=== PATIENT | female | born 1960 | race Caucasian/White ===

== ENCOUNTER 2017-03-07 12:18 | Emergency (ER) | payer BC, OTHER ==
[2017-03-07 13:31] VITALS: BP 143/75
--- NOTE | 2017-03-07 13:51 | UC ---
Complaint Female HPI - History Of Current Complaint Hx Last Menstrual Period: menapause <Rach Hopkins - Last Filed: 03/07/17 13:50> <Albino Rosenthal - Last Filed: 03/07/17 15:09> - History Of Current Complaint Chief Complaint: UCGU Stated Complaint: BURNING URINATION,URGENCY, Time Seen by Provider: 03/07/17 13:38 - Allergies/Home Medications Allergies/Adverse Reactions: Allergies Allergy/AdvReac Type Severity Reaction Status Date / Time Codeine Allergy Severe Anaphylatic Verified 03/07/17 13:31 Shock Lisinopril Allergy Severe DRY COUGH Verified 03/07/17 13:31 Home Medications: Home Medications Esomeprazole Magnesium [Nexium] 1 tab PO DAILY 03/07/17 [History Confirmed 03/07] Phenazopyridine HCl 1 tab PO ONCE 03/07/17 [History Confirmed 03/07/17] PMH/Surg Hx/FS Hx/Imm Hx Endocrine History Of: Reports: Diabetes Denies: Thyroid Disease Cardiovascular History Of: Reports: Cardiac Disorders - [place]-2012, Hypertension, Myocardial Infarction Respiratory History Of: Denies: COPD, Asthma GI/ History Of: Reports: Gall Bladder Disease - cholesystectomy Denies: Ulcer - Surgical History Surgical History: Yes Surgery Procedure, Year, and Place: CARDIAC STENT 2012. LEFT KIDNEY TRANSPLANT. RIGHT KIDNEY REMOVED '. APPENDECTOMY. GALL BLADDER REMOVAL ' . BREAST REDUCTION ' - Family History Known Family History: Positive: Cardiac Disease, Hypertension - Social History Alcohol Use: None Substance Use Type: None Smoking Status (MU): Former Smoker Type: Cigarettes Length of Time of Smoking/Using Tobacco: 44 years, not smoking for 6 of those, trouble quitting Have You Smoked in the Last Year: No When Did the Patient Quit Smoking/Using Tobacco: 01/2016 Household Exposure Type: Cigarettes - Immunization History Most Recent Influenza Vaccination: utd Most Recent Tetanus Shot: not sure Most Recent Pneumonia Vaccination: Never <Rach Hopkins - Last Filed: 03/07/17 13:50> Physical Exam Vital Signs: Initial Vital Signs Temp 97.8 F 03/07/17 13:25 Pulse 56 03/07/17 13:25 Resp 16 03/07/17 13:25 BP 143/75 03/07/17 13:25 Pulse Ox 100 03/07/17 13:25 <Rach Hopkins - Last Filed: 03/07/17 13:50> Vital Signs: Initial Vital Signs Temp 97.8 F 03/07/17 13:25 Pulse 56 03/07/17 13:25 Resp 16 03/07/17 13:25 BP 143/75 03/07/17 13:25 Pulse Ox 100 03/07/17 13:25 <Albino Rosenthal - Last Filed: 03/07/17 15:09>
[2017-03-07] MEDS ORDERED: cefTRIAXone VIAL(*) 1,000 MG in NS 0.9% 50 ML* 50 ML IVPB ONE (15:07)
--- NOTE | 2017-03-07 15:16 | UC ---
Complaint Female HPI - HPI Summary HPI Summary: 56 yo female with dysuria/urgency/frequency Has renal failure CrCL13 has tansplant no fever or chills no vomiting hx frequenct UTIs - History Of Current Complaint Chief Complaint: UCGU Stated Complaint: BURNING URINATION,URGENCY, Time Seen by Provider: 03/07/17 13:38 Hx Last Menstrual Period: menapause Onset/Duration: Gradual Onset, Lasting Days Timing: Constant Severity Initially: Mild Severity Currently: Mild Pain Intensity: 3 Pain Scale Used: 0-10 Numeric Character: Dull, Burning Aggravating Factor(s): Urination Associated Signs And Symptoms: Negative: Fever, Back Pain, Vaginal Bleeding/ Discharge, Vaginal Discharge, Nausea, Vomiting(# Of Episodes =) Related Hx: Similar Episode/Dx as: - UTI - Allergies/Home Medications Allergies/Adverse Reactions: Allergies Allergy/AdvReac Type Severity Reaction Status Date / Time Codeine Allergy Severe Anaphylatic Verified 03/07/17 13:31 Shock Lisinopril Allergy Severe DRY COUGH Verified 03/07/17 13:31 Home Medications: Home Medications Esomeprazole Magnesium [Nexium] 1 tab PO DAILY 03/07/17 [History Confirmed 03/07] Phenazopyridine HCl 1 tab PO ONCE 03/07/17 [History Confirmed 03/07/17] PMH/Surg Hx/FS Hx/Imm Hx Endocrine History Of: Reports: Diabetes Denies: Thyroid Disease Cardiovascular History Of: Reports: Cardiac Disorders - [place]-2012, Hypertension, Myocardial Infarction Respiratory History Of: Denies: COPD, Asthma GI/ History Of: Reports: Gall Bladder Disease - cholesystectomy, Renal Disease Denies: Ulcer - Surgical History Surgical History: Yes Surgery Procedure, Year, and Place: CARDIAC STENT 2012. LEFT KIDNEY TRANSPLANT. RIGHT KIDNEY REMOVED '. APPENDECTOMY. GALL BLADDER REMOVAL ' . BREAST REDUCTION ' - Family History Known Family History: Positive: Cardiac Disease, Hypertension - Social History Alcohol Use: None Substance Use Type: None Smoking Status (MU): Former Smoker Type: Cigarettes Length of Time of Smoking/Using Tobacco: 44 years, not smoking for 6 of those, trouble quitting Have You Smoked in the Last Year: No When Did the Patient Quit Smoking/Using Tobacco: 01/2016 Household Exposure Type: Cigarettes - Immunization History Most Recent Influenza Vaccination: utd Most Recent Tetanus Shot: not sure Most Recent Pneumonia Vaccination: Never Review of Systems Constitutional: Negative Skin: Negative Eyes: Negative ENT: Negative Respiratory: Negative Cardiovascular: Negative Gastrointestinal: Abdominal Pain Genitourinary: Dysuria, Frequency, Urgency Motor: Negative Neurovascular: Negative Musculoskeletal: Negative Neurological: Negative Psychological: Negative All Other Systems Reviewed And Are Negative: Yes Physical Exam Triage Information Reviewed: Yes Appearance: Well-Appearing, No Pain Distress, Well-Nourished Vital Signs: Initial Vital Signs Temp 97.8 F 03/07/17 13:25 Pulse 56 03/07/17 13:25 Resp 16 03/07/17 13:25 BP 143/75 03/07/17 13:25 Pulse Ox 100 03/07/17 13:25 Eyes: Positive: Conjunctiva Clear ENT: Negative: Hearing grossly normal, Nasal congestion, Nasal drainage, Trismus , Muffled/hoarse voice Neck: Positive: Supple, Nontender Respiratory: Positive: Lungs clear, Normal breath sounds, No respiratory distress Cardiovascular: Positive: RRR, No Murmur Abdomen Description: Negative: Nontender - jay LUQt Bowel Sounds: Positive: Present Musculoskeletal: Positive: ROM Intact, No Edema Neurological: Positive: Alert Psychological Exam: Normal Skin Exam: Normal Complaint Female Dx - Differential Dx/Diagnosis Provider Diagnoses: UTI Discharge - Discharge Plan Condition: Good Disposition: HOME Prescriptions: Sulfamethox/Trimethoprim SS* [Bactrim SS 400/80 TAB*] 1 tab PO DAILY #7 tab Patient Education Materials: Urinary Tract Infection in Women (ED) Referrals: Dennys Bansal MD [Primary Care Provider] - 2 Days (recheck in 1-2 days) Additional Instructions: to ER for fever or vomiting
[2017-03-07] MEDS ORDERED: cefTRIAXone VIAL(*) 1,000 MG VIAL ONE (15:27)
--- NOTE | 2017-03-10 21:00 | UC ---
Progress - Progress Note Progress Note: Pt called and verified name and . Pt advised she was given ceftriaxone 1gm on WedMarch 07. Pt also advised urine culture is negative and to DC Bactrim. Pt states she will follow up with her textile artist, Dr. Pruitt at [facility]. States she still has some discomfort but it is better. No fever. (Pt is a kidney transplant pt.)
== END 2017-03-07 16:15 | disposition home or self-care (01) ==
LOC: UCEAST 12:18
DX: N39.0 Urinary tract infection, site not specified (principal); E11.9 Type 2 diabetes mellitus without complications; I25.2 Old myocardial infarction; I10 Essential (primary) hypertension; Z87.891 Personal history of nicotine dependence; Z94.0 Kidney transplant status; Z78.0 Asymptomatic menopausal state; Z88.5 Allergy status to narcotic agent; Z95.5 Presence of coronary angioplasty implant and graft; Z90.5 Acquired absence of kidney
CPT/HCPCS: 81003; 87086; 96365; 99212; G0463; J0696

== ENCOUNTER 2017-07-31 11:54 | Emergency (ER) | payer BC ==
[2017-07-31 12:46] VITALS: BP 150/65
--- NOTE | 2017-07-31 13:07 | UC ---
Complaint Female HPI - HPI Summary HPI Summary: increased urinary frequency, burning with urination. - History Of Current Complaint Chief Complaint: UCGU Stated Complaint: URINARY Time Seen by Provider: 07/31/17 13:00 Hx Obtained From: Patient Hx Last Menstrual Period: menapause ?: No Onset/Duration: Sudden Onset, Lasting Days Timing: Constant Severity Initially: Mild Severity Currently: Moderate Character: Burning Aggravating Factor(s): Urination - Allergies/Home Medications Allergies/Adverse Reactions: Allergies Allergy/AdvReac Type Severity Reaction Status Date / Time Codeine Allergy Severe Anaphylatic Verified 07/31/17 12:41 Shock Lisinopril Allergy Severe DRY COUGH Verified 07/31/17 12:41 PMH/Surg Hx/FS Hx/Imm Hx Previously Healthy: Yes - Surgical History Surgical History: Yes Surgery Procedure, Year, and Place: CARDIAC STENT 2012. LEFT KIDNEY TRANSPLANT. RIGHT KIDNEY REMOVED '. APPENDECTOMY. GALL BLADDER REMOVAL . BREAST REDUCTION - Family History Known Family History: Positive: Cardiac Disease, Hypertension - Social History Alcohol Use: None Substance Use Type: None Smoking Status (MU): Heavy Every Day Tobacco Smoker Type: Cigarettes Amount Used/How Often: 1 PPD Length of Time of Smoking/Using Tobacco: Since Age 11 Have You Smoked in the Last Year: No When Did the Patient Quit Smoking/Using Tobacco: 01/2016 Household Exposure Type: Cigarettes - Immunization History Most Recent Influenza Vaccination: ~07/01/17 Most Recent Tetanus Shot: not sure Most Recent Pneumonia Vaccination: Never Review of Systems Constitutional: Negative Skin: Negative Eyes: Negative ENT: Negative Respiratory: Negative Cardiovascular: Negative Gastrointestinal: Negative Genitourinary: Dysuria, Frequency, Urgency Motor: Negative Neurovascular: Negative Musculoskeletal: Negative Neurological: Negative Psychological: Negative Is Patient Immunocompromised?: No All Other Systems Reviewed And Are Negative: Yes Physical Exam Triage Information Reviewed: Yes Appearance: Well-Appearing, Well-Nourished, Pain Distress Vital Signs: Initial Vital Signs Temp 98.2 F 07/31/17 12:38 Pulse 66 07/31/17 12:38 Resp 16 07/31/17 12:38 BP 150/65 07/31/17 12:38 Pulse Ox 100 07/31/17 12:38 Vital Signs Reviewed: Yes Eye Exam: Normal ENT Exam: Normal Dental Exam: Normal Neck exam: Normal Respiratory Exam: Normal Cardiovascular Exam: Normal Abdominal Exam: Normal Abdomen Description: Positive: CVA Tenderness (R) - neg, CVA Tenderness (L) - neg Bowel Sounds: Positive: Present Musculoskeletal Exam: Normal Musculoskeletal: Positive: Strength Intact, ROM Intact, No Edema Neurological Exam: Normal Neurological: Positive: Alert, Muscle Tone Normal Psychological Exam: Normal Skin Exam: Normal Complaint Female Dx - Course Course Of Treatment: hx obtained, exam performed ,meds reviewed, treated for UTI - Differential Dx/Diagnosis Provider Diagnoses: UTI Discharge - Discharge Plan Condition: Stable Disposition: HOME Prescriptions: Cephalexin CAP* [Keflex CAP*] 500 mg PO BID #14 cap Patient Education Materials: Urinary Tract Infection in Women (ED) Additional Instructions: 1. take the medication as prescribed. 2. Increase your fluid intake and follow up as needed.
== END 2017-07-31 13:10 | disposition home or self-care (01) ==
LOC: UCCORT 11:54
DX: N39.0 Urinary tract infection, site not specified (principal); Z88.5 Allergy status to narcotic agent; Z88.8 Allergy status to other drugs, medicaments and biological substances
CPT/HCPCS: 81003; 87077; 87086; 87186; 99212; G0463

== ENCOUNTER 2017-12-02 10:04 | Emergency (ER) | payer BC ==
[2017-12-02 11:06] VITALS: BP 146/69
--- NOTE | 2017-12-02 11:19 | UC ---
Complaint Female HPI - HPI Summary HPI Summary: 57 y/o female presents to the urgent care c/o bladder spasm, urinary frequency and burning for the past week. Pt has Hx of kidney transplant w/ recurrent UTI' s. Her symptoms start w/ bladder spasm. She waits for a while and if she develops burning, Then she knows she has a UTI. She took 1 tab of Azo about 3 days ago. Pt states mild Pelvic pressure. Pt denies fever, lower back pain, flank, abdominal pain, N/V/D, chest pain, SOB. - History Of Current Complaint Chief Complaint: UCGU Stated Complaint: URINARY COMPLAINT Time Seen by Provider: 12/02/17 11:11 Hx Obtained From: Patient Hx Last Menstrual Period: menapause Onset/Duration: Gradual Onset, Lasting Weeks, Still Present, Worse Since - yesterday Timing: Intermittent Severity Initially: Mild Severity Currently: Moderate Pain Intensity: 6 Pain Scale Used: 0-10 Numeric Character: Burning Aggravating Factor(s): Urination Alleviating Factor(s): Nothing Associated Signs And Symptoms: Positive: Negative. Negative: Fever, Back Pain, Vaginal Bleeding/Discharge, Vaginal Discharge, Nausea, Vomiting(# Of Episodes =) , Genital Swelling - Risk Factors Ectopic Risk Factor: Negative Ovarian Torsion Risk Factor: Negative - Allergies/Home Medications Allergies/Adverse Reactions: Allergies Allergy/AdvReac Type Severity Reaction Status Date / Time codeine Allergy Anaphylatic Verified 12/02/17 10:59 Shock lisinopril Allergy dry cough Verified 12/02/17 10:59 PMH/Surg Hx/FS Hx/Imm Hx Previously Healthy: Yes Endocrine History: Diabetes Other Endocrine History: Anemia, Kidney transplant Cardiovascular History: Hypertension - Surgical History Surgical History: Yes Surgery Procedure, Year, and Place: CARDIAC STENT 2012. LEFT KIDNEY TRANSPLANT. RIGHT KIDNEY REMOVED '. APPENDECTOMY. GALL BLADDER REMOVAL ' . BREAST REDUCTION '. LEEP - Family History Known Family History: Positive: Cardiac Disease, Hypertension, Diabetes - Social History Occupation: Disabled Lives: With Family Alcohol Use: None Substance Use Type: None Smoking Status (MU): Heavy Every Day Tobacco Smoker Type: Cigarettes Amount Used/How Often: 1 PPD Length of Time of Smoking/Using Tobacco: Since Age 11 Have You Smoked in the Last Year: No When Did the Patient Quit Smoking/Using Tobacco: 2014 Household Exposure Type: Cigarettes - Immunization History Most Recent Influenza Vaccination: ~07/01/17 Most Recent Tetanus Shot: not sure Most Recent Pneumonia Vaccination: Never Review of Systems Constitutional: Negative Skin: Negative Eyes: Negative ENT: Negative, Dental Pain Cardiovascular: Negative Gastrointestinal: Negative Genitourinary: Dysuria, Frequency, Urgency Motor: Negative Neurovascular: Negative Musculoskeletal: Negative Neurological: Negative Psychological: Negative Is Patient Immunocompromised?: No All Other Systems Reviewed And Are Negative: Yes Physical Exam Triage Information Reviewed: Yes Vital Signs: Initial Vital Signs Temp 97.6 F 12/02/17 11:00 Pulse 60 12/02/17 11:00 Resp 18 12/02/17 11:00 BP 146/69 12/02/17 11:00 Pulse Ox 100 12/02/17 11:00 - Additional Comments VITAL SIGNS: Reviewed. GENERAL: Patient is a well developed and nourished female who is sitting comfortable in the examining table. Patient is not in any acute respiratory distress. HEAD AND FACE: No signs of trauma. No ecchymosis, hematomas or skull depressions. No sinus tenderness. EYES: PERRLA, EOMI x 2, No injected conjunctiva, clear watery eyes, no nystagmus. No photophobia. EARS: Hearing grossly intact. Ear canals and tympanic membranes are within normal limits. MOUTH: pharynx with no erythema, no exudates,no palatal petechiae. no B/L tonsillar enlargement Uvula in midline. NECK: Supple, trachea is midline, no lymphadenopathy, no JVD, no carotid bruit, no c-spine tenderness, neck with full ROM. CHEST: Symmetric, no tenderness at palpation LUNGS: Clear to auscultation bilaterally. No wheezing or crackles. CVS: Regular rate and rhythm, S1 and S2 present, no murmurs or gallops appreciated. ABDOMEN: Soft, non-tender. No signs of distention. No rebound no guarding, and no masses palpated. Bowel sounds are normal. BACK:no scoliosis or lesions, non tender to palpation, No B/L CVA tenderness EXTREMITIES: FROM in all major joints, no edema, no cyanosis or clubbing. NEURO: Alert and oriented x 3. No acute neurological deficits. Speech is normal and follows commands. SKIN: Dry and warm Complaint Female Dx - Course Course Of Treatment: 57 y/o female presents to the urgent care c/o bladder spasm , urinary frequency and burning for the past week. Pt has Hx of kidney transplant w/ recurrent UTI's. Her symptoms start w/ bladder spasm. She waits for a while and if she develops burning, Then she knows she has a UTI. She took 1 tab of Azo about 3 days ago. Pt states mild Pelvic pressure. Pt denies fever, lower back pain, flank, abdominal pain, N/V/D, chest pain, SOB. Hx obtained. PE : WNL. UA ordered. UA results: Blood 3+, Leukoesterase 3, Protein 3+. Dr Padgett consulted on Pt's symptoms and he recommended Keflex PO. Pt Rx Keflex 500mg PO x 7 days. Pyridium 100mg PO TID x 2 days. Advised to increase fluid intake. Urine sent for culture if any abnormality Pt will be notified for further treatment. Pt advised If symptoms do not improve to return to the urgent care or f/u with PCP. Pt's BP is elevated today advised to decrease salt in diet, monitor BP and f/u with PCP for further management. Pt understood and agreed. Left the clinic ambulating. - Differential Dx/Diagnosis Differential Diagnosis/HQI/PQRI: Cervicitis, Pelvic Inflammatory Disease, Renal Colic, Ureteral Stone, Urinary Tract Infection Provider Diagnoses: 1- UTI. 2-Dysuria. 3- Uncontrolled HTN Discharge - Discharge Plan Condition: Stable Disposition: HOME Prescriptions: cephALEXin [Keflex] 500 mg PO BID #14 capsule Phenazopyridine TAB* [Pyridium 100 mg TAB*] 100 mg PO TID #6 tab Patient Education Materials: Urinary Tract Infection in Women (ED) Referrals: Dennys Bansal MD [Primary Care Provider] - 3 Days Additional Instructions: 1- Please take Keflex 500mg PO x 7 days. Pyridium 100 mg PO TID x 2 days to alleviate urinary symptoms. Increase increase fluid intake. drink cranberry juice. 2-Urine sent for culture if any abnormality, you will be notified for further treatment. 3-If symptoms do not improve please return to the urgent care or f/u with her PCP. 4-Your BP is elevated today. please decrease salt in your diet, monitor BP and if it continues to be elevated please f/u with your PCP for further management
== END 2017-12-02 11:40 | disposition home or self-care (01) ==
LOC: UCCORT 10:04
DX: N39.0 Urinary tract infection, site not specified (principal); I10 Essential (primary) hypertension; E11.8 Type 2 diabetes mellitus with unspecified complications
CPT/HCPCS: 81003; 87077; 87086; 87186; 99212; G0463

== ENCOUNTER 2018-06-20 02:49 | Inpatient (IN) | payer BC ==
--- NOTE | 2018-06-20 03:12 | ED ---
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 The pain woke her from sleep and radiates bilaterally to her sides. At bedside, the pain is still present but milder, and is rated 2 out of 10. Pt initially thought it was her GERD, so she took Tums but that did not relieve the pain, and the pain worsened at home. Associated sx: diaphoresis, vomiting. Denies dyspnea. She states having a stress test in December 2017 that was nml. Pt takes a low dose aspirin daily. PMHx: GERD, renal failure and is on transplant list, [place] with one stent in 2012. - History of Current Complaint Chief Complaint: EDChestPainROMI Time Seen by Provider: 06/20/18 02:52 Hx Obtained From: Patient Hx Last Menstrual Period: menapause Onset/Duration: Started Hours Ago, Still Present Timing: Constant Initial Severity: Moderate Current Severity: Mild Pain Intensity: 2 Pain Scale Used: 0-10 Numeric Chest Pain Location: Mid Sternal Chest Pain Radiates: Yes Chest Pain Radiates To:: Other - bilateral sides Associated Signs and Symptoms: Positive: Diaphoresis, Vomiting, Other: - neg: dyspnea - Additional Pertinent History Primary Care Physician: [id number] - Allergy/Home Medications Allergies/Adverse Reactions: Allergies Allergy/AdvReac Type Severity Reaction Status Date / Time codeine Allergy Anaphylatic Verified 12/02/17 10:59 Shock lisinopril Allergy dry cough Verified 12/02/17 10:59 PMH/Surg Hx/FS Hx/Imm Hx Previously Healthy: No Endocrine/Hematology History: Reports: Hx Diabetes Denies: Hx Thyroid Disease Cardiovascular History: Reports: Hx Angina, Hx Coronary Artery Disease, Hx Hypercholesterolemia, Hx Hypertension, Hx Myocardial Infarction Respiratory History: Denies: Hx Asthma, Hx Chronic Obstructive Pulmonary Disease (COPD) GI History: Reports: Hx Gall Bladder Disease - cholesystectomy, Hx Gastroesophageal Reflux Disease - barretts esoph. Denies: Hx Ulcer History: Reports: Hx Chronic Renal Failure, Hx Renal Disease, Other Problems/Disorders - kidney transplant - Surgical History Surgery Procedure, Year, and Place: CARDIAC STENT 2012. LEFT KIDNEY TRANSPLANT. RIGHT KIDNEY REMOVED . APPENDECTOMY. GALL BLADDER REMOVAL . BREAST REDUCTION . LEEP Infectious Disease History: No Infectious Disease History: Reports: Hx of Known/Suspected MRSA Denies: Hx Clostridium Difficile, Hx Hepatitis, Hx Human Immunodeficiency Virus (HIV), Hx Shingles, Hx Tuberculosis, Hx Known/Suspected VRE, Hx Known/ Suspected VRSA, History Other Infectious Disease, Traveled Outside the [place] in Last 30 Days - Family History Known Family History: Positive: Cardiac Disease, Hypertension, Diabetes - Social History Occupation: Retired Lives: Alone Alcohol Use: None Substance Use Type: Reports: None Smoking Status (MU): Former Smoker Type: Cigarettes Amount Used/How Often: 1 PPD Length of Time of Smoking/Using Tobacco: Since Age 11 Have You Smoked in the Last Year: No Review of Systems Positive: Skin Diaphoresis Positive: Chest Pain Negative: Other - neg: dyspnea Positive: Vomiting All Other Systems Reviewed And Are Negative: Yes Physical Exam - Summary Physical Exam Summary: VITAL SIGNS: Reviewed. GENERAL: Patient is a well-developed and nourished FEMALE who is lying comfortable in the stretcher. Patient is not in any acute respiratory distress. HEAD AND FACE: No signs of trauma. No ecchymosis, hematomas or skull depressions. No sinus tenderness. EYES: PERRLA, EOMI x 2, No injected conjunctiva, no nystagmus. EARS: Hearing grossly intact. Ear canals and tympanic membranes are within normal limits. MOUTH: Oropharynx within normal limits. NECK: Supple, trachea is midline, no adenopathy, no JVD, no carotid bruit, no c- spine tenderness, neck with full ROM. CHEST: Symmetric, no tenderness at palpation LUNGS: Clear to auscultation bilaterally. Mild expiratory wheezes. CVS: Regular rate and rhythm, S1 and S2 present, no murmurs or gallops appreciated. ABDOMEN: Soft, non-tender. No signs of distention. No rebound no guarding, and no masses palpated. Bowel sounds are normal. EXTREMITIES: FROM in all major joints, no edema, no cyanosis or clubbing. NEURO: Alert and oriented x 3. No acute neurological deficits. Speech is normal and follows commands. SKIN: Dry and warm Triage Information Reviewed: Yes Vital Signs On Initial Exam: Initial Vitals Pulse Resp BP Pulse Ox 81 18 147/93 97 06/20/18 02:53 06/20/18 02:53 06/20/18 02:53 06/20/18 02:53 Vital Signs Reviewed: Yes Diagnostics - Vital Signs Vital Signs Temp Pulse Resp BP Pulse Ox 06/20/18 03:02 97.5 F 77 18 147/93 96 06/20/18 03:00 79 24 96 06/20/18 02:53 81 18 147/93 97 - Laboratory Result Diagrams: 06/20/18 05:00 06/20/18 05:00 Lab Statement: Any lab studies that have been ordered have been reviewed, and results considered in the medical decision making process. - Radiology CXR Xray Interpretation: No Acute Changes - No acute process. Radiology Interpretation Completed By: ED Physician - Pending official report. - EKG 02:59 Cardiac Rate: NL - 78bpm EKG Rhythm: Sinus Rhythm EKG Interpretation: LVH with strain, ST elevation only in lead III, minimally 1mm 0312 Cardiac Rate: NL - 73 bpm EKG Rhythm: Sinus Rhythm EKG Interpretation: LVH with strain, ST elevation only in lead III, minimally 1mm EKG Comparison: No Significant Change - from EKG on this date at 02:59 03:12 Cardiac Rate: NL - 73 bpm EKG Rhythm: Sinus Rhythm EKG Interpretation: LVH with strain, ST elevation only in lead III, minimally 1mm EKG Comparison: No Significant Change - from EKG on this date at 02:59 05:34 Cardiac Rate: NL EKG Rhythm: Sinus Rhythm EKG Interpretation: LVH with strain, ST elevation only in lead III, minimally 1mm EKG Comparison: No Significant Change - from two prev EKGs on this date Re-Evaluation - Re-Evaluation 1 Re-Evaluation Time: 03:58 Change: Unchanged Comment: Discussing lab and img results with pt. Chest Pain Course/Dx - Course Course Of Treatment: A 57 y/o F presents with mid-sternal CP radiating bilat onset approx 0130 this date. The pain woke her. Associated sx: diaphoresis, vomiting. Denies dyspnea. She states having a stress test in December 2017 that was nml. Pt takes a low dose aspirin daily. PMHx: GERD, renal failure and is on transplant list, [place] with one stent in 2012. - Diagnoses Provider Diagnoses: Unstable angina - Provider Notifications Discussed Care Of Patient With: Kapil Palacios - cardio Time Discussed With Above Provider: 04:03 Instructed by Provider To: Other - Recommends CK, CK-MB, repeat EKG, heparin drip Discharge - Sign-Out/Discharge Documenting (check all that apply): Patient Departure - ADM - Discharge Plan Condition: Stable Disposition: ADMITTED TO [facility] Referrals: Dennys Bansal MD [Primary Care Provider] - - Attestation Statements Document Initiated by Scribe: Yes Documenting Scribe: Binu Peralta Provider For Whom Scribe is Documenting (Include Credential): Dr. Binta Rodas MD Scribe Attestation: I, Binu Peralta, scribed for Dr. Binta Rodas MD on 06/20/18 at 0609. Consult Consult: [id number]: Consult with Dr. Ordoñez, hospitalist, will admit pt.
[2018-06-20] MEDS ORDERED: Aspirin 81 mg CHEW TAB* 81 MG TAB.CHEW PO ONE (03:13)
[2018-06-20] MEDS ORDERED: Pantoprazole IV* 40 MG IV ONE (03:13)
[2018-06-20] MEDS ORDERED: Metoclopramide IV* 5 MG/ML 2 ML VIAL IV SLOW PU ONE (03:21)
[2018-06-20 03:32] LABS: ABS Basophils 0.1 10^3/ul (0-0.2); ABS Eosinophils 0.1 10^3/ul (0-0.6); ABS Lymphocytes 1.3 10^3/ul (1.0-4.8); ABS Monocytes 0.6 10^3/ul (0-0.8); ABS Neutrophils 3.7 10^3/ul (1.5-7.7); ABS Nucleated RBC 0 10^3/ul; Eosinophil % 2.5 % (0-6); Hematocrit 34 % (35-47); Hemoglobin 11.1 g/dl (12.0-16.0); Mean Corpuscular HGB Conc 33 g/dl (31-36); Mean Corpuscular Hemoglobin 27 pg (27-31); Mean Corpuscular Volume 84 fL (80-97); Mean Platelet Volume 8.1 um3 (7.4-10.4); Nucleated Red Blood Cells % 0; Platelet Count 181 10^3/ul (150-450); Red Blood Count 4.09 10^6/ul (4.00-5.40); Red Cell Distribution Width 15 % (10.5-15); White Blood Count 5.9 10^3/ul (3.5-10.8)
[2018-06-20 03:47] LABS: EGFR Non-African American 12.8 (>60)
[2018-06-20] MEDS ORDERED: Morphine INJ* 2 MG/ML 1 ML SYRINGE (TWO MG - NEW SYRINGE VERSION) IV ONE (03:57)
[2018-06-20] MEDS ORDERED: Ondansetron INJ* 2 MG/ML VIAL IV ONE (03:58)
[2018-06-20 03:59] LABS: INR 0.84 (0.77-1.02)
[2018-06-20] MEDS ORDERED: Heparin for STEMI(*) 5,000 UNITS/ML 1 ML VIAL IV ONE (04:13)
[2018-06-20] MEDS ORDERED: Heparin VIAL(*) 5000 UNITS/ML VIAL (FIVE THOUSAND) IV PRN (04:30)
[2018-06-20] MEDS ORDERED: Heparin DRIP 25,000 UNITS(*) 25,000 UNITS/500 ML BAG IV SCH (04:30)
[2018-06-20 05:19] LABS: ABS Basophils 0 10^3/ul (0-0.2); ABS Eosinophils 0.2 10^3/ul (0-0.6); ABS Lymphocytes 1.3 10^3/ul (1.0-4.8); ABS Monocytes 0.6 10^3/ul (0-0.8); ABS Neutrophils 3.4 10^3/ul (1.5-7.7); ABS Nucleated RBC 0 10^3/ul; Eosinophil % 3.2 % (0-6); Hematocrit 33 % (35-47); Hemoglobin 11.1 g/dl (12.0-16.0); Lymphocyte % 23.2 % (25-47); Mean Corpuscular HGB Conc 34 g/dl (31-36); Mean Corpuscular Hemoglobin 28 pg (27-31); Mean Corpuscular Volume 83 fL (80-97); Mean Platelet Volume 8.2 um3 (7.4-10.4); Nucleated Red Blood Cells % 0; Platelet Count 181 10^3/ul (150-450); Red Blood Count 3.95 10^6/ul (4.00-5.40); Red Cell Distribution Width 15 % (10.5-15); White Blood Count 5.4 10^3/ul (3.5-10.8)
[2018-06-20 05:34] LABS: EGFR Non-African American 13.5 (>60)
--- NOTE | 2018-06-20 05:40 | HP ---
H&P (Free Text) History and Physical: PCP: Artur Bansal MD Date/Time: 06/20/2018 0630 CC: chest pain HPI: Mrs Sweeney is a 57YO female HX CAD/ND/RCA stent, DM2, ESRD s/p renal transplant 10 years ago which is currently failing awaiting re-transplant, HTN, HLD, GERD who has been having what she felt like was her esophageal spasms starting up again 3 weeks ago. However, tonight around 0130 she awoke with squeezing chest discomfort associated with SOB, N/V, & sweating which was unlike her spasms. She tried her typical OTC treatments which did not help and called EMS ~0200. They gave SL nitro x2 decreasing her pain from an 8 to a 4. Initial troponin was 0.15 increased to 1.0 at first recheck. ECG was significant for inferior ischemia. Management in [facility] ED completely alleviated her pain. Brionna Flood MD was consulted and evaluated her in the ED. He is planning cardiac cath later today once she can be optimized from a medical and in particular a renal standpoint with IVFs, mucomyst, & nephrology consult. PMedHx CAD/ND/RCA stent HTN HLD DM2 ESRD s/p transplant 10 years ago awaiting re-transplant GERD Ambulatory Orders Aspirin 81 mg CHEW TAB* 81 mg PO DAILY 06/07/16 Candesartan Cilexetil [Atacand] 8 mg PO DAILY 06/07/16 Cholecalciferol TAB* [Vitamin D TAB*] 50,000 unit PO MONTHLY 06/07/16 Ferrous Sulfate TAB* 325 mg PO DAILY 06/07/16 Furosemide TAB* [Lasix TAB*] 20 mg PO DAILY 06/07/16 Methylcobalamin [[id number]-[id number]] 1 mg PO DAILY 06/07/16 Metoprolol Tartrate TAB* [Lopressor TAB*] 100 mg PO BID 06/07/16 Mycophenolate (NF) [Myfortic (NF)] 360 mg PO BID 06/07/16 Sitagliptin (NF) [Januvia (NF)] 50 mg PO DAILY 06/07/16 Sodium Bicarbonate (ANTACID)* 1,300 mg PO BID 06/07/16 Tacrolimus CAP(*) [Prograf CAP(*)] 1.5 mg PO BID 06/07/16 amLODIPine TAB* [Norvasc 5 mg TAB*] 10 mg PO DAILY 06/07/16 glipiZIDE TAB* [Glucotrol TAB*] 5 mg PO DAILY 06/07/16 predniSONE TAB* [Deltasone TAB*] 5 mg PO DAILY 06/07/16 Atorvastatin* [Lipitor 80 MG*] 80 mg PO DAILY #90 tab 06/08/16 Esomeprazole Magnesium [Nexium] 40 mg PO DAILY 03/07/17 Allergies codeine Allergy (Verified 12/02/17 10:59) Anaphylatic Shock lisinopril Allergy (Verified 12/02/17 10:59) dry cough PSurgHx R nephrectomy for uncertain reason at a 2YO cholecystectomy renal transplant hysterectomy 01/2018 w/ appendectomy SocHx: quit smoking 3 years ago with >40 PYHX, no alcohol or recreational drugs ; lives with her ; full code status FamHx: Mother is alive & healthy at 78. Father passed at 65 2nd CAD. 7 siblings whose combined histories are positive only for DM. ROS: as above, otherwise reviewed and all were negative vitals: Vital Signs Temp 36.4 C 06/20/18 03:02 Pulse 69 06/20/18 07:00 Resp 23 06/20/18 07:00 BP 140/82 06/20/18 06:53 Pulse Ox 99 06/20/18 07:00 Intake & Output 06/19/18 06/19/18 06/20/18 11:59 23:59 11:59 Weight 74.843 kg Constitutional: NAD, normally developed, overweight white female HEENM: atraumatic; sclera/conjunctiva: anicteric/clear; hearing: clinically intact; oropharynx: clear, mucosa intact Neck: soft tissue: non-tender; thyroid: normal Pulmonary: clear to auscultation bilaterally, good aeration, no accessory muscle use CV: RR/RR, normal S1S2, no carotid bruit, no jugular venous distention, 2+ B DP/ PT, no edema Abdominal: soft, non-distended, non-tender, no rebound/guarding/rigidity, normoactive bowel sounds, no hepatosplenomegaly or masses, no costovertebral angle tenderness Musculoskeletal: general: grossly intact, non-tender Integumental: normal appearance and texture of exposed skin Psychiatric orientation: AA&O to PPS affect: calm mood: cooperative eye contact: good content: reliable responses: timely insight: good Testing: Lab Results 06/20/18 06/20/18 06/20/18 Range/Units 03:23 03:23 03:23 WBC 5.9 (3.5-10.8) 10^3/ul RBC 4.09 (4.00-5.40) 10^6/ul Hgb 11.1 L (12.0-16.0) g/dl Hct 34 L (35-47) % MCV 84 (80-97) fL MCH 27 (27-31) pg MCHC 33 (31-36) g/dl RDW 15 (10.5-15) % Plt Count 181 (150-450) 10^3/ul MPV 8.1 (7.4-10.4) um3 Neut % (Auto) 64.0 (38-83) % Lymph % (Auto) 22.0 L (25-47) % [place] % (Auto) 10.6 H (0-7) % Eos % (Auto) 2.5 (0-6) % Baso % (Auto) 0.9 (0-2) % Absolute Neuts (auto) 3.7 (1.5-7.7) 10^3/ul Absolute Lymphs (auto) 1.3 (1.0-4.8) 10^3/ul Absolute Monos (auto) 0.6 (0-0.8) 10^3/ul Absolute Eos (auto) 0.1 (0-0.6) 10^3/ul Absolute Basos (auto) 0.1 (0-0.2) 10^3/ul Absolute Nucleated RBC 0 10^3/ul Nucleated RBC % 0 INR (Anticoag Therapy) 0.84 (0.77-1.02) APTT 25.9 L (26.0-36.3) seconds Sodium 137 (135-145) mmol/L Potassium 4.6 (3.5-5.0) mmol/L Chloride 106 (101-111) mmol/L Carbon Dioxide 22 (22-32) mmol/L Anion Gap 9 (2-11) mmol/L BUN 50 H (6-24) mg/dL Creatinine 3.64 H (0.51-0.95) mg/dL Est GFR ( Amer) 15.5 (>60) Est GFR (Non-Af Amer) 12.8 (>60) BUN/Creatinine Ratio 13.7 (8-20) Glucose 242 H (70-100) mg/dL Lactic Acid (0.5-2.0) mmol/L Calcium 10.1 (8.6-10.3) mg/dL Total Bilirubin 0.30 (0.2-1.0) mg/dL AST 8 L (13-39) U/L ALT 10 (7-52) U/L Alkaline Phosphatase 87 (34-104) U/L Total Creatine Kinase 60 (10-223) U/L CK-MB (CK-2) 2.9 (0.6-6.3) ng/mL Troponin I 0.15 H* (<0.04) ng/mL B-Natriuretic Peptide ( - 100) pg/mL Total Protein 6.2 L (6.4-8.9) g/dL Albumin 3.7 (3.2-5.2) g/dL Globulin 2.5 (2-4) g/dL Albumin/Globulin Ratio 1.5 (1-3) 06/20/18 06/20/18 06/20/18 Range/Units 03:23 03:23 05:00 WBC (3.5-10.8) 10^3/ul RBC (4.00-5.40) 10^6/ul Hgb (12.0-16.0) g/dl Hct (35-47) % MCV (80-97) fL MCH (27-31) pg MCHC (31-36) g/dl RDW (10.5-15) % Plt Count (150-450) 10^3/ul MPV (7.4-10.4) um3 Neut % (Auto) (38-83) % Lymph % (Auto) (25-47) % [place] % (Auto) (0-7) % Eos % (Auto) (0-6) % Baso % (Auto) (0-2) % Absolute Neuts (auto) (1.5-7.7) 10^3/ul Absolute Lymphs (auto) (1.0-4.8) 10^3/ul Absolute Monos (auto) (0-0.8) 10^3/ul Absolute Eos (auto) (0-0.6) 10^3/ul Absolute Basos (auto) (0-0.2) 10^3/ul Absolute Nucleated RBC 10^3/ul Nucleated RBC % INR (Anticoag Therapy) (0.77-1.02) APTT 26.2 (26.0-36.3) seconds Sodium (135-145) mmol/L Potassium (3.5-5.0) mmol/L Chloride (101-111) mmol/L Carbon Dioxide (22-32) mmol/L Anion Gap (2-11) mmol/L BUN (6-24) mg/dL Creatinine (0.51-0.95) mg/dL Est GFR ( Amer) (>60) Est GFR (Non-Af Amer) (>60) BUN/Creatinine Ratio (8-20) Glucose (70-100) mg/dL Lactic Acid 1.3 (0.5-2.0) mmol/L Calcium (8.6-10.3) mg/dL Total Bilirubin (0.2-1.0) mg/dL AST (13-39) U/L ALT (7-52) U/L Alkaline Phosphatase (34-104) U/L Total Creatine Kinase (10-223) U/L CK-MB (CK-2) (0.6-6.3) ng/mL Troponin I (<0.04) ng/mL B-Natriuretic Peptide 153 H ( - 100) pg/mL Total Protein (6.4-8.9) g/dL Albumin (3.2-5.2) g/dL Globulin (2-4) g/dL Albumin/Globulin Ratio (1-3) 06/20/18 06/20/18 Range/Units 05:00 05:00 WBC 5.4 (3.5-10.8) 10^3/ul RBC 3.95 L (4.00-5.40) 10^6/ul Hgb 11.1 L (12.0-16.0) g/dl Hct 33 L (35-47) % MCV 83 (80-97) fL MCH 28 (27-31) pg MCHC 34 (31-36) g/dl RDW 15 (10.5-15) % Plt Count 181 (150-450) 10^3/ul MPV 8.2 (7.4-10.4) um3 Neut % (Auto) 62.0 (38-83) % Lymph % (Auto) 23.2 L (25-47) % [place] % (Auto) 11.0 H (0-7) % Eos % (Auto) 3.2 (0-6) % Baso % (Auto) 0.6 (0-2) % Absolute Neuts (auto) 3.4 (1.5-7.7) 10^3/ul Absolute Lymphs (auto) 1.3 (1.0-4.8) 10^3/ul Absolute Monos (auto) 0.6 (0-0.8) 10^3/ul Absolute Eos (auto) 0.2 (0-0.6) 10^3/ul Absolute Basos (auto) 0 (0-0.2) 10^3/ul Absolute Nucleated RBC 0 10^3/ul Nucleated RBC % 0 INR (Anticoag Therapy) (0.77-1.02) APTT (26.0-36.3) seconds Sodium (135-145) mmol/L Potassium (3.5-5.0) mmol/L Chloride (101-111) mmol/L Carbon Dioxide (22-32) mmol/L Anion Gap (2-11) mmol/L BUN 54 H (6-24) mg/dL Creatinine 3.48 H (0.51-0.95) mg/dL Est GFR ( Amer) 16.3 (>60) Est GFR (Non-Af Amer) 13.5 (>60) BUN/Creatinine Ratio (8-20) Glucose (70-100) mg/dL Lactic Acid (0.5-2.0) mmol/L Calcium (8.6-10.3) mg/dL Total Bilirubin (0.2-1.0) mg/dL AST (13-39) U/L ALT (7-52) U/L Alkaline Phosphatase (34-104) U/L Total Creatine Kinase 158 (10-223) U/L CK-MB (CK-2) 11.9 H (0.6-6.3) ng/mL Troponin I 1.02 H* (<0.04) ng/mL B-Natriuretic Peptide ( - 100) pg/mL Total Protein (6.4-8.9) g/dL Albumin (3.2-5.2) g/dL Globulin (2-4) g/dL Albumin/Globulin Ratio (1-3) ECGs, personally reviewed: sinus rhythm rate 60-70s initially showing inferior non-diagnostic ST elevation in III with lateral ST depression which improved on subsequent tracings as her pain improved CXR, personally reviewed: no acute process Impression: 57F HX CAD/ND/RCA stent, DM2, ESRD s/p renal transplant 10 years ago which is currently failing awaiting re-transplant, HTN, HLD, GERD presents with ACS DIAGNOSIS & PLAN Primary ACS : aspirin, heparin GTT, metoprolol, nitro GTT : Brionna Palacios MD interventional cardiology evaluated in ED & will follow : trend troponin : supplemental oxygen : obtain urgent ECHO for LV function : supportive care ESRD s/p renal transplant awaiting re-transplant : IVFs : mucormyst 600mg BID : consult Arina Rahman MD nephrology : continue mycophenolate, sodium bicarbonate, prednisone, & tacrolimus Secondary DM2 : check A1C : clear liquid diet : Q4H glucometry w/ correctional insulin HTN : hold furosemide, amlodipine, & candesartan to prevent renal compromise from hypotension : continue metoprolol 100mg BID HLD : continue atorvastatin GERD : IV pantoprazole Admission Rational: Inpatient as without the above interventions the risk of impending adverse outcome is unacceptably high; inappropriate for the outpatient setting DVTp: heparin GTT Code Status: full HCP: Critical Care time: 55minutes with >50% spent at the bedside obtaining a history , performing the examination, advising of diagnosis & treatment options along with risks/benefits/reasoning; remainder spent discussing with ER MD, reviewing labs and radiology exams
[2018-06-20] MEDS ORDERED: Nitroglycerin 2% OINT* 1 GM PAK ONE (05:44)
[2018-06-20] MEDS ORDERED: Acetaminophen TAB* 325 MG PO PRN (06:33)
[2018-06-20] MEDS ORDERED: Ondansetron ODT TAB* 4 MG PO PRN (06:33)
[2018-06-20] MEDS ORDERED: Morphine INJ* 2 MG/ML 1 ML SYRINGE (TWO MG - NEW SYRINGE VERSION) IV PRN (06:45)
[2018-06-20] MEDS ORDERED: NS 0.9% 1000 ML* 1,000 ML IV SCH (06:45)
[2018-06-20] MEDS ORDERED: Heparin DRIP 25,000 UNITS(*) 25,000 UNITS/500 ML BAG IVPB SCH (06:45)
[2018-06-20] MEDS ORDERED: Nitroglycerin 2% OINT* 1 GM PAK TOPICAL ONE (06:48)
[2018-06-20] MEDS ORDERED: Insulin LISPRO* 1 UNITS UNIT SUBCUT SCH (07:00)
[2018-06-20] MEDS ORDERED: Acetylcysteine CAP (RENAL)* 600 MG PO SCH (07:00)
[2018-06-20] MEDS ORDERED: nitroGLYCERIN DRIP* 25,000 MCG/250 ML BTL IV SCH (07:00)
[2018-06-20 07:46] LABS: EGFR Non-African American 13.5 (>60)
--- NOTE | 2018-06-20 08:42 | RAD ---
Indication: Chest pain. Single frontal view of the chest performed at 0339 hours was reviewed. Comparison is made with previous exam dated June 07, 2016. No mediastinal shift is noted. Heart is of normal size and configuration. Lung garcia appear clear. IMPRESSION: NO ACTIVE CARDIOPULMONARY DISEASE IS NOTED. R0
[2018-06-20] MEDS ORDERED: Pantoprazole IV* 40 MG IV SCH (09:00)
[2018-06-20] MEDS ORDERED: Tacrolimus CAP(*) 0.5 MG PO SCH (09:00)
[2018-06-20] MEDS ORDERED: predniSONE TAB* 5 MG PO SCH (09:00)
[2018-06-20] MEDS ORDERED: Aspirin 81 mg CHEW TAB* 81 MG TAB.CHEW PO SCH (09:00)
[2018-06-20] MEDS ORDERED: MYCOPHENOLATE 360 MG PO SCH (09:00)
[2018-06-20] MEDS ORDERED: Atorvastatin* 80 MG TAB PO SCH (09:00)
[2018-06-20] MEDS ORDERED: Sodium Bicarbonate (ANTACID)* 650 MG TAB PO SCH (09:00)
[2018-06-20] MEDS ORDERED: Diazepam TAB(*) 5 MG PO ONE (09:10)
--- NOTE | 2018-06-20 09:24 | CONS ---
CC: Dr. Dennys Bansal CARDIOLOGY CONSULTATION: DATE OF CONSULT: 06/20/18 REASON FOR CONSULT: The patient with abnormal EKG with mild ST segment elevation in lead III only wi th mild ST segment depressions in I, aVL, and lateral leads with chest discomfort and abnormal tropon in, assess cardiac status. HISTORY OF PRESENT ILLNESS: The patient is a pleasant 57-year-old female with a probably known histo ry of coronary artery disease dating back to non-ST segment elevation myocardial infarction in 2012 w ith subsequent stenting of a long segment of the vrffhasm-lx-day right coronary artery. Since that ti me to now, she has done well. She had a hospitalization in 2016 with Lexiscan stress test, it showed minimal apical defect, but no significant change from prior stress testing. She had a stress test d one in preparation for listing for kidney transplant on 12/08/17 done as a Lexiscan stress test. She had no inducible EKG changes of ischemia. Her nuclear images were normal. No evidence of ischemia. No evidence of infarction with an EF of 63%. The patient now comes in stating that over the past 3 weeks, she has had symptoms of waking up at [facility] with chest discomfort that if she sits up and burps and takes some Tums would go away. She has bee n diagnosed with esophageal spasm-type disease in the past. She generally describes it occurring as a tightness in the middle of the chest going to the right side and sometimes even down the right arm, that started again back 2 to 3 weeks ago. Tonight, however, she woke up at 01:30 in the morning, castano d chest tightness that went both ways across her chest and also into her back. With this symptom, gunnar vargas had associated diaphoresis as well as nausea and vomiting. She eventually called for the supervisor road administrator s to bring her and the EKG interestingly showed minimal depression in V4 and V5 and slight downslopin g in V6. On arrival, repeat EKG done time 02:59 a.m. showed a question of minimal nondiagnostic ST se gment elevation with concave upward in lead III with mild depression of ST segment and aVL more promi nent lead I and also noted in V3 through . Repeat done at 04:09 seemed to be somewhat better, but still had the ST segment depression and minimal J-point elevation in lead III. Repeat EKG done that was done 05:34 showed significant improvement with minimal scooping of ST segments. Currently, when I talked to her, she is pain free. CARDIAC RISK FACTORS: Include a history of hyperlipidemia, essential hypertension. She has not smoke d since 2012 and family history is noncontributory. 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 She is again on the trans plant list as she currently has progressive renal insufficiency. She states her kidney doctor is up in [place]. CURRENT MEDICATIONS: When I last saw her in the office on 01/03/18 included: 1. Prograf 0.5 mg 1 tablet by mouth twice a day. 2. Atacand 8 mg a day. 3. Glipizide XL 5 mg a day. 4. Furosemide 20 mg a day. 5. Myfortic 360 mg twice a day. 6. Amlodipine 10 mg a day. 7. Vitamin D 5000 units monthly. 8. Prednisone 5 mg daily. 9. Metoprolol tartrate 100 mg twice a day. 10. Vitamin B12 of 100 mcg a day. 11. Ferrous sulfate 325 a day. 12. Aspirin 81 mg a day. 13. Januvia 50 mg by mouth a day. 14. Lipitor 80 mg at bedtime. 15. Nexium 40 mg by mouth. 16. Sodium bicarbonate 650 mg tablets 2 tablets by mouth twice a day. ALLERGIES: CODEINE. PHYSICAL EXAM: When I see her in the emergency room reveals currently vital signs blood pressure 131 /85, pulse is 67 and regular, respirations 17, O2 saturation 97%. Neck is supple. There is no obviou s increased JVP. Carotid has fair upstroke in volume, I do not hear any definitive bruits or transmi tted murmur. Conjunctivae are minimally pale. Sclerae are clear. Lungs reveal no accessory muscle usage. There is good excursion. There are no active rales, rhonchi, or wheezes. Heart reveals no vis ible heaves, no palpable heaves or thrills. Normal S1, S2 with no S3, S4 gallop. Heart sounds are g enerally distant in nature. Abdomen is mildly obese, soft, nontender without organomegaly. Extremit ies: Without clubbing, cyanosis, or butch pitting edema. Femoral pulses present without bruits. Ne uro: The patient is alert and oriented with normal mentation. Musculoskeletal: The patient with nor mal gait. Psychiatric: The patient with normal affect. DIAGNOSTIC STUDIES/LAB DATA: Blood test results reveal an initial hemoglobin and hematocrit of 11.1 and 34 and repeat 11.1 and 33, white count 5900 on initial one, repeated at 5400, platelet count 181, 000 on both samples. Sodium was 137,000; potassium 4.6; chloride 106; bicarb 22; BUN and creatinine initially were 20 and 3.64, on repeat was 54 and 3.48; glucose was 242; lactic acid was 1.3. Initial total CPK, MB, and troponin were 60, 2.9, and 0.15, on repeat trdn-lra-n-half later the total CPK was 158, MB was 11.9, troponin was 1.02 when she was essentially pain free. INR was 0.84. Chest x-ray report is pending. OVERALL ASSESSMENT: Tiffany now presents with a bout of prolonged chest discomfort with abnormal cardi ac enzymes, currently pain free with markedly improved EKG and IV heparin. At this point in time, we will continue her beta-winter and consider starting her on very low-dose IV nitroglycerin, although given the fact that she is pain free, we may not do that at this point. Clearly, given her transpla nt status, we will need to perform cardiac catheterization on her to rule out the presence of a criti dave lesion that would subsequently need intervention. Being that she is currently pain free, we will get an echocardiogram on her this morning, so as to avoid any excessive dye usage and consider cardi ac catheterization after that. This will give us time to start her on IV fluids, normal saline at 125 an hour to start getting her hydrated and also to give her Mucomyst, although the data is clearly no t necessarily supportive of this. More importantly will be the amount of contrast we use at the time of the procedure and hydrating her before and after cardiac catheterization. If she obviously devel ops recurrent chest discomfort, we will have to go emergently. Thank you very much for having asked me to see her in consultation. We will be following her along w lizeth olsen. [id number]/[facility] #: [id number]
--- NOTE | 2018-06-20 09:33 | ECHO ---
Patient: JR KOLB [facility] Rec#: [id number] : 1960 Date: 06/20/2018 Age: 57y Height: 165 cm / 65.0 in Weight: 81.82 kg / 180.3 lbs Sex: F BSA: 1.89 Room#: [facility] Admit Date#: 06/20/2018 Type: Inpatient Referring: Antoine Ordoñez MD Reading: Deepak Bernstein DO Mascara Molder: Francia Welch RDCS CC: Dennys Bansal MD Transthoracic Echocardiogram Indication: Myocardial Infarction BP: 131/85 HR: 69 Rhythm: NSR Findings History: CAD with PCI, DM, renal failure, s/p renal transplant. Technical Comments: The study quality is fair. Completed at 0900. Left Ventricle: The left ventricular chamber size is normal. Mild concentric left ventricular hypertrophy is observed. There is a prominent septal knuckle. There is normal left ventricular systolic function. The estimated ejection fraction is 60-65%. Abnormal left ventricular diastolic function is observed. The mid anterolateral, mid inferolateral, and apical lateral wall segments are hypokinetic (score 2). Overall wallmotion score index is 2.00 Left Atrium: The left atrium is moderately dilated. Right Ventricle: The right ventricular chamber size and systolic function are within normal limits. Right Atrium: The right atrium is mildly dilated. Aortic Valve: The aortic valve is trileaflet. The aortic valve leaflets are mildly thickened. There is mild to moderate aortic regurgitation. There is no evidence of aortic stenosis. Mitral Valve: The mitral valve leaflets are mildly thickened. There is mild mitral regurgitation. There is no evidence of mitral stenosis. Tricuspid Valve: The tricuspid valve leaflets are normal. There is trace to mild tricuspid regurgitation. Unable to estimate the right ventricular systolic pressure. There is no tricuspid stenosis. Pulmonic Valve: The pulmonic valve appears normal. There is mild pulmonic regurgitation. There is no pulmonic stenosis. Pericardium: There is no significant pericardial effusion. Aorta: There is mild dilatation of the ascending aorta. There is no dilatation of the aortic arch. There is mild dilatation of the aortic root. Pulmonary Artery: The main pulmonary artery is not well visualized. Venous: The inferior vena cava appears normal in size. There is a greater than 50% respiratory change in the inferior vena cava dimension. Conclusions The left ventricular chamber size is normal. Mild concentric left ventricular hypertrophy is observed. There is a prominent septal knuckle. There is normal left ventricular systolic function. The estimated ejection fraction is 60-65%. The mid anterolateral, mid inferolateral, and apical lateral wall segments are hypokinetic The left atrium is moderately dilated. The right ventricular chamber size and systolic function are within normal limits. There is mild to moderate aortic regurgitation. Unable to estimate the right ventricular systolic pressure. There is no significant pericardial effusion. There is mild dilatation of the ascending aorta and aortic root. Compared to prior study from 12/2012, a segmental wall motion abnormality is now noted Measurements Name Value Normal Range RVIDd (AP) 2D 2.7 cm (0.9 - 2.6) RVDdMajor (2D) 4.7 cm (2.2 - 4.4) RAd ISD 4CH 5.2 cm (3.4 - 4.9) RA (A4C)W 4.3 cm (2.9 - 4.6) IVSd (2D) 1.2 cm (0.6 - 1) LVPWd (2D) 1.1 cm (0.6 - 1) LVIDd (2D) 4.5 cm (3.6 - 5.4) LVIDs (2D) 3.1 cm - LV FS (2D) 31 % (25 - 45) Aortic Annulus 2.2 cm (1.4 - 2.6) Ao root diameter (2D) 3.6 cm (2.1 - 3.5) Ascending Ao 3.6 cm (2.1 - 3.4) Aortic arch 2 cm (1.8 - 3.4) LA dimension (AP) 2D 4.3 cm (2.3 - 3.8) LAd ISD 4CH 5.9 cm (2.9 - 5.3) LA ISD 4CH W 5.2 cm (2.5 - 4.5) Name Value Normal Range LA ESV BP (A/L) index 42 ml/m2 - Name Value Normal Range MV E-wave Vmax 0.6 m/sec - MV deceleration time 261 msec - MV A-wave Vmax 0.9 m/sec - MV E:A ratio 0.7 ratio - LV septal e' Vmax 0.04 m/sec - LV lateral e' Vmax 0.04 m/sec - LV E:e' septal ratio 15 ratio - LV E:e' lateral ratio 15 ratio - Name Value Normal Range AV Vmax 1.1 m/sec - AV VTI 26.8 cm - AV peak gradient 5 mmHg - AV mean gradient 2 mmHg - LVOT Vmax 1.08 m/sec - LVOT VTI 25.5 cm - LVOT peak gradient 5 mmHg - LVOT mean gradient 2 mmHg - YANELIS Vmax 0.7 m/sec - Name Value Normal Range IVC diameter 1.5 cm - Name Value Normal Range PV Vmax 1.1 m/sec - PV peak gradient 5 mmHg - NC Vmax 1.1 m/sec - Mean PA pressure 5 mmHg - Wallmotion BAS Not Seen BA Not Seen BAL Not Seen YANETH Not Seen BI Not Seen BIS Not Seen MAS Not Seen MA Not Seen MAL Hypokinetic MIL Hypokinetic NV Not Seen MIS Not Seen Not Seen AA Not Seen AL Hypokinetic AI Not Seen APEX Not Seen
[2018-06-20] MEDS ORDERED: Heparin(*) 1000 UNIT/ML 10 ML VIAL CATH LAB IV ONE (09:39)
[2018-06-20] MEDS ORDERED: Iodixanol* (CONTRAST) 320 MG/ML 100 ML SDV ONE (09:40)
[2018-06-20] MEDS ORDERED: Lidocaine 1% INJ* 10 MG/ML 30 ML SDV ONE (09:40)
[2018-06-20] MEDS ORDERED: Heparin 2 UNITS/ML IVPREMIX* 3,000 ML IV ONE (09:40)
[2018-06-20] MEDS ORDERED: nitroGLYCERIN DRIP* 0 MCG/0 ML BTL ONE (09:40)
[2018-06-20] MEDS ORDERED: fentaNYL* 50 MCG/ML 2 ML VIAL (100 MCG VIAL) ONE (09:40)
[2018-06-20] MEDS ORDERED: Midazolam* 1 MG/ML 10 ML VIAL (10 MG) ONE (09:41)
[2018-06-20] MEDS ORDERED: VERAPAMIL 2.5 MG/ML 2 ML VIAL ** 5 mg/2 ml ONE (09:41)
[2018-06-20] MEDS ORDERED: Bivalirudin(*) 250 MG VIAL ONE (10:51)
[2018-06-20 11:47] VITALS: BP 137/72
--- NOTE | 2018-06-20 11:57 | PN ---
Progress Note - Progress Note Date of Service: 06/20/18 Note: Time spent on transfer/discharge 45 minutes, including exam of patient, discussion with patient, nurse, Dr. Palacios, review of EMR and preparation of discharge documents.
--- NOTE | 2018-06-20 13:12 | CATH ---
CC: Dr. Dennys Bansal * CARDIAC CATHETERIZATION REPORT: DATE OF PROCEDURE: 06/20/18 - ROOM #ICU-05 INDICATION FOR PROCEDURE: The patient presents with non-ST elevation myocardial infarction with focal wall motion abnormality to the mid anterolateral and posterolateral wall. PROCEDURE: Coronary arteriography, left heart catheterization. The patient was interviewed and examined in the emergency room on initial presentation. The risks and benefits of cardiac catheterization were explained to her and most importantly including the fact of acute on chronic renal failure with the need for dialysis, as she has chronic renal insufficiency and is awaiting kidney transplant. PRE-CARDIAC CATHETERIZATION LABORATORY RESULTS: Hemoglobin and hematocrit of 11.1 and 33, platelet count of 181,000. Glucose 170, BUN and creatinine 52 and 3.4. PTT was 26.2. Sodium 139, potassium 4.5, chloride 108, bicarb 23. MEDICATIONS: Given during procedure: 1. The patient received Valium 2.5 mg orally. 2. The patient was already on a heparin drip and on a nitroglycerin drip at 2 mcg per minute. 3. The patient had already received also her daily metoprolol tartrate 100 mg. 4. The patient had already received Mucomyst 600 mg p.o. and had intravenous fluids running at 125 cc for 3 to 3-1/2 hours prior to the procedure. EQUIPMENT UTILIZED: 1. Right femoral artery sheaths: A 5-Turkmen Berna 11-cm sheath as well as a Merit Prelude 6.5-Turkmen sheath. 2. Diagnostic catheters included a FR4 curve 5-Turkmen catheter. For the left coronary artery, multiple catheters were utilized including a FL4.5, FL5.0 5- Turkmen catheter and eventually, a JL6 curve 6-Turkmen catheter. 3. The left heart catheterization catheter was a 5-Turkmen angled pigtail catheter. DESCRIPTION OF PROCEDURE: The patient was brought to the cardiovascular laboratory where a formal time-out was performed. The patient was prepped and draped in sterile fashion. The right femoral artery area was anesthetized with 1% lidocaine. Right femoral artery was cannulated using an anterior wall only stick and a 5- Turkmen sheath was placed. Diagnostic coronary arteriography was performed as well as left heart catheterization. Decision was made to perform an additional 2 injections for the left coronary artery utilizing a 6 curve catheter and as such the 5-Turkmen sheath was exchanged for the 6.5-Turkmen sheath and left coronary artery diagnostic arteriography was performed. Following this, the catheter was removed and the sheath was sutured in place in anticipation of transporting the patient to a center for higher care with the ability to have rotational atherectomy available as part of her interventional procedure. The total radiation exposure included 6.8 minutes of fluoro time. The air kerma radiation was 1009 milligray. The DAP radiation was 5702 microgray per sq. m. The total contrast used was 45 cc of Visipaque dye. RESULTS: HEMODYNAMIC DATA: Left heart catheterization - revealed central aortic pressure recorded at 158/77 with a mean of 109. Left ventricular pressure 153 over left ventricular end-diastolic pressure of 15. CORONARY ARTERIOGRAPHY: A. Left coronary artery: 1. Left main - widely patent. 2. Left anterior descending artery - there was heavy calcification seen through the proximal to mid portion of the left anterior descending artery. The mid portion had a narrowing of approximately 45% to 50%. The first diagonal branch had a critically obstructed ostial to proximal segment with what appeared to be a dissected appearance with heavy calcification seen in the proximal and mid portion of this vessel. The distal LAD supplied the apical region on to the distal inferior wall. 3. Circumflex artery - a nondominant vessel supplying a moderate mid obtuse marginal branch and ending at a low-lying obtuse marginal branch. The moderate mid obtuse marginal branch had diffuse calcium in its proximal portion and a significant obstruction of 80% in its proximal portion. After discussion with Dr. Galvez from [facility], it is noted that this mid OM is occluded in it's mid to distal segment with extensive calcification with retrograde collateral flow from the lower obtuse marginal branch. B. Right coronary artery - a dominant vessel supplying the PDA and multiple posterior left ventricular branches. The area of prior stenting in the proximal mid portion showed no evidence of in-stent restenosis or obstruction. The distal portion of the vessel tapered and past the posterior descending artery was a diffusely diseased area of as much as 65% to 70% stenosis leading to the 2 posterior left ventricular branches. The caliber of the vessel in this area was borderline for intervention. OVERALL ASSESSMENT: Significant multivessel disease most importantly involving the first diagonal branch along with the obtuse marginal branch as echocardiography identified the anterolateral and mid to low posterolateral wall as having wall motion abnormalities. The diffuse distal disease in the right coronary artery was to an area that is borderline, able to be treated with any type of intervention. At this point in time, given the heavy calcification and the dissected appearance of the first diagonal branch and mid obtuse marginal branch, I felt it more appropriate that the procedure be attempted at a center that has the ability to perform rotational atherectomy if needed, in order to provide the best optimal outcome with intervening and stenting. This could also allow at least 24 hours for continued hydration and Mucomyst (although not felt to definitively decrease risk of contrast-induced worsening nephropathy during cardiac catheterization) and potentially reassess her kidney function. She clearly understands the risk of potential dialysis and is prepared for that. [id number]/[facility] #: [id number] YOHANA
--- NOTE | 2018-06-20 13:29 | TRS ---
CC: Dr. Bansal * TRANSFER SUMMARY: DATE OF ADMISSION: 06/20/18 DATE OF TRANSFER: 06/20/18 HOSPITAL COURSE: This 57-year-old woman presented with chest pain that woke her up during sleep. She had had prior symptoms of chest pain over the past 3 weeks. She would sit up and burp and take Tums. The day of admission, she woke at 1:30 in the morning. Pain went across her chest into her back. She had diaphoresis, nausea, and vomiting. She had elevated troponin levels and was taken to the cardiac supervisor laboratory animal facility. She had dissection of coronary artery. It was felt to require intervention at a higher level of care, possibly with intracoronary thrombectomy. The patient was hemodynamically stable at the time of transfer. She received about 45 mL of intravenous contrast. She was getting normal saline at 125 mL an hour. Troponin level was 0.15 on arrival at the emergency room and 3.93 at 7: 18 a.m. on the day of transfer. Creatinine was 3.64 in the emergency room and 3.48 at 0718 hours on the day of transfer. The patient was pain free at the time of transfer, she had no other symptoms, her physical findings were really unremarkable. FINAL TRANSFER DIAGNOSES: 1. Acute coronary syndrome. 2. Failed renal transplant. 3. Hypertension. 4. Ex-smoker. 5. Gastroesophageal reflux disease. MEDICATIONS AT TRANSFER: 1. Acetaminophen 650 mg every 6 hours p.r.n. 2. Acetylcysteine 600 mg b.i.d., first dose given 7 a.m., 06/20/18, plan for 4 doses. 3. Aspirin 81 mg daily. 4. Atorvastatin 80 mg daily at 9 a.m. 5. Heparin drip 900 units per hour. 6. Metoprolol 100 mg b.i.d. 7. Morphine 2 mg IV every 2 hours p.r.n. 8. Mycophenolate 360 mg b.i.d. 9. Normal saline 125 mL per hour. 10. Ondansetron ODT 4 mg sublingual every 6 hours p.r.n. 11. Pantoprazole IV 40 mg daily. 12. Prednisone 5 mg p.o. daily. 13. Sodium bicarbonate 1300 mg b.i.d. 14. Tacrolimus 1.5 mg p.o. b.i.d. CONDITION ON TRANSFER: Stable. DISPOSITION ON TRANSFER: Transferred to [facility] via ground ambulance. [id number]/[facility] #: [id number] YOHANA
[2018-06-20] MEDS ORDERED: Metoprolol Tartrate TAB* 100 MG TAB PO SCH (21:00)
== END 2018-06-20 13:00 | disposition short-term general hospital (02) | DRG 192 ==
LOC: ED 02:49 → ICU 06:27
PROVIDERS: ADMIT Hospitalist; ATTEND Hospitalist
PROC: B211YZZ Fluoroscopy of Multiple Coronary Arteries using Other Contrast (ICD-10-PCS; 2018-06-20)
PROC: B215YZZ Fluoroscopy of Left Heart using Other Contrast (ICD-10-PCS; 2018-06-20)
PROC: 4A023N7 Measurement of Cardiac Sampling and Pressure, Left Heart, Percutaneous Approach (ICD-10-PCS; principal; 2018-06-20 10:00)
DX: I24.9 Acute ischemic heart disease, unspecified (principal); N18.6 End stage renal disease; N17.9 Acute kidney failure, unspecified; T86.12 Kidney transplant failure; I13.11 Hypertensive heart and chronic kidney disease without heart failure, with stage 5 chronic kidney disease, or end stage renal disease; I25.10 Atherosclerotic heart disease of native coronary artery without angina pectoris; E11.22 Type 2 diabetes mellitus with diabetic chronic kidney disease; E78.5 Hyperlipidemia, unspecified; K21.9 Gastro-esophageal reflux disease without esophagitis; Z95.5 Presence of coronary angioplasty implant and graft; Z79.84 Long term (current) use of oral hypoglycemic drugs; Z79.82 Long term (current) use of aspirin; Z79.52 Long term (current) use of systemic steroids; Z79.899 Other long term (current) drug therapy; Z88.5 Allergy status to narcotic agent; Z88.8 Allergy status to other drugs, medicaments and biological substances; Z87.891 Personal history of nicotine dependence; Z82.49 Family history of ischemic heart disease and other diseases of the circulatory system; Z83.3 Family history of diabetes mellitus; I25.2 Old myocardial infarction
CPT/HCPCS: 36415; 71045; 80048; 80053; 82550; 82553; 82565; 83036; 83605; 83880; 84484; 84520; 85025; 85347; 85610; 85730; 87641; 93005; 93306; 93458; 99284; A9270-GY; C1887; J0583; J1644; J2250; J2270; J2405; J2765; J3010; J7507; J7512

== ENCOUNTER 2019-05-15 18:07 | Emergency (ER) | payer BC ==
[2019-05-15 18:26] VITALS: BP 123/66
--- NOTE | 2019-05-15 18:28 | UC ---
Complaint Female HPI - HPI Summary HPI Summary: 58 yo female presents with abdominal pain. She tells me that for the last 2 days she has been having mild left abdominal pain. Today pain became more severe and is tender to touch. She developed some urinary frequency and is concerned she has a UTI. She has a history of CKD and renal transplant with 2 kidneys on the left. She is feeling well otherwise and denies fever, chills, injury, SOB, chest pain, back pain, hematuria. - History Of Current Complaint Chief Complaint: UCAbdominalPain Stated Complaint: ABDOMINAL PAIN Time Seen by Provider: 05/15/19 18:27 Hx Obtained From: Patient Hx Last Menstrual Period: menapause Onset/Duration: Gradual Onset Severity Initially: Mild Severity Currently: Moderate Pain Intensity: 6 Pain Scale Used: 0-10 Numeric - Allergies/Home Medications Allergies/Adverse Reactions: Allergies Allergy/AdvReac Type Severity Reaction Status Date / Time codeine Allergy Anaphylatic Verified 12/02/17 10:59 Shock lisinopril Allergy dry cough Verified 12/02/17 10:59 PMH/Surg Hx/FS Hx/Imm Hx - Additional Past Medical History Additional PMH: CKD Renal transplant Endocrine History: Diabetes, Dyslipidemia Cardiovascular History: Cardiac Disease, Hypertension GI/ History: Gastroesophageal Reflux - Surgical History Surgical History: Yes Surgery Procedure, Year, and Place: CARDIAC STENT 2012. LEFT KIDNEY TRANSPLANT. RIGHT KIDNEY REMOVED '. APPENDECTOMY. GALL BLADDER REMOVAL ' . BREAST REDUCTION '. LEEP. hysterectomy - Family History Known Family History: Positive: Cardiac Disease, Hypertension, Diabetes - Social History Lives: With Family Alcohol Use: None Substance Use Type: None Smoking Status (MU): Former Smoker Type: Cigarettes Amount Used/How Often: 1 PPD Length of Time of Smoking/Using Tobacco: Since Age 11 Have You Smoked in the Last Year: No When Did the Patient Quit Smoking/Using Tobacco: 2014 Household Exposure Type: Cigarettes - Immunization History Most Recent Influenza Vaccination: ~07/01/17 Most Recent Tetanus Shot: not sure Most Recent Pneumonia Vaccination: Never Review of Systems All Other Systems Reviewed And Are Negative: Yes Constitutional: Positive: Negative Skin: Positive: Negative Eyes: Positive: Negative ENT: Positive: Negative Respiratory: Positive: Negative Cardiovascular: Positive: Negative Gastrointestinal: Positive: Abdominal Pain Genitourinary: Positive: Negative Neurovascular: Positive: Negative Neurological: Positive: Negative Psychological: Positive: Negative Physical Exam - Summary Physical Exam Summary: GENERAL: NAD. WDWN. No pain distress. SKIN: No rashes, sores, lesions, or open wounds. NECK: Supple. Nontender. No lymphadenopathy. CHEST: CTAB. No r/r/w. No accessory muscle use. Breathing comfortably and in no distress. CV: RRR. Without m/r/g. Pulses intact. Cap refill <2seconds ABDOMEN: Moderate TTP LUQ and overlying spleen. Soft. No distention or guarding. No CVA tenderness. Bowel sounds present NEURO: Alert. PSYCH: Age appropriate behavior. Triage Information Reviewed: Yes Vital Signs: Initial Vital Signs Temp 99 F 05/15/19 18:23 Pulse 68 05/15/19 18:23 Resp 16 05/15/19 18:23 BP 123/66 05/15/19 18:23 Pulse Ox 100 05/15/19 18:23 Vital Signs Reviewed: Yes Complaint Female Dx - Course Course Of Treatment: UA negative for infection. Given her LUQ pain, the differential is numerous. She has multiple comorbidities including DM, CAD, CKD, and renal transplant. For these reasons, I believe she needs a higher level of care including labwork and likely imaging of the area and have recommended that she go to the ER for further evaluation. She is agreeable to this and will have a family member drive her. - Differential Dx/Diagnosis Provider Diagnosis: LUQ pain Discharge - Sign-Out/Discharge Documenting (check all that apply): Patient Departure All imaging exams completed and their final reports reviewed: No Studies - Discharge Plan Condition: Stable Disposition: HOME-RECOMMEND TO ED Referrals: Dennys Bansal MD [Primary Care Provider] - Additional Instructions: Please go to the ER for further evaluation of your left upper quadrant pain - Billing Disposition and Condition Condition: STABLE Disposition: Home-Recommend to ED - Attestation Statements Provider Attestation: I was available for consult. This patient was seen by the DONALD. The patient was not presented to, seen by, or examined by me. -[place]
== END 2019-05-15 19:02 | disposition home health service (06) ==
LOC: UCEAST 18:07
DX: R10.12 Left upper quadrant pain (principal); I12.9 Hypertensive chronic kidney disease with stage 1 through stage 4 chronic kidney disease, or unspecified chronic kidney disease; E11.22 Type 2 diabetes mellitus with diabetic chronic kidney disease; N18.9 Chronic kidney disease, unspecified; Z94.0 Kidney transplant status; Z87.891 Personal history of nicotine dependence; Z88.5 Allergy status to narcotic agent
CPT/HCPCS: 81002; 99212; G0463

== ENCOUNTER 2020-08-06 06:07 | Inpatient (IN) ==
[2020-08-06] MEDS ORDERED: Diltiazem IV push/loading dose 5 MG/ML 5 ML vial (25 mg) IV SLOW PU ONE (06:16)
[2020-08-06 07:14] LABS: ABS Eosinophils 0.1 10^3/ul (0-0.6); ABS Lymphocytes 1.9 10^3/ul (1.0-4.8); ABS Monocytes 0.7 10^3/ul (0-0.8); ABS Neutrophils 2.9 10^3/ul (1.5-7.7); Eosinophil % 1.2 %; Hematocrit 33 % (35-47); Lymphocyte % 34.2 %; Mean Corpuscular HGB Conc 33 g/dL (31-36); Mean Corpuscular Hemoglobin 29 pg (27-31); Mean Corpuscular Volume 89 fL (80-97); Mean Platelet Volume 8.7 fL (7.4-10.4); Platelet Count 189 10^3/uL (150-450); Red Blood Count 3.75 10^6 /uL (3.70-4.87); Red Cell Distribution Width 15 % (10-15); White Blood Count 5.6 10^3/uL (3.5-10.8)
[2020-08-06 07:18] LABS: Albumin 3.6 g/dL (3.2-5.2); Albumin/Globulin Ratio 1.6 (1-3); BUN/Creatinine Ratio 11.8 (8-20); Calcium 9.3 mg/dL (8.6-10.3); EGFR African American 12.6 (>60); EGFR Non-African American 10.4 (>60); Globulin 2.3 g/dL (2-4); Magnesium 2.3 mg/dL (1.9-2.7); Potassium 4.3 mmol/L (3.5-5.0); Total Bilirubin 0.4 mg/dL (0.2-1.0); Total Protein 5.9 g/dL (6.4-8.9)
[2020-08-06 07:19] LABS: Troponin I 0.02 ng/mL (<0.03)
[2020-08-06 07:32] LABS: TSH Ultra Thyroid Stim Horm 0.21 mcIU/mL (0.34-5.60)
[2020-08-06 08:39] LABS: Free T4 0.86 ng/dL (0.61-1.12)
[2020-08-06] MEDS ORDERED: Diltiazem (ADVAN VIAL) 100 MG/100 ML ADDV.BAG IV SCH (10:00)
[2020-08-06 10:48] LABS: Free T3 2.9 pg/mL (2.5-3.9)
[2020-08-06 11:17] LABS: HIV 4th Generation Nonreactive (Nonreactive)
[2020-08-06] MEDS: Heparin 5000 UNITS/ML 1 mL VIAL IV SCH (11:46)
[2020-08-06] MEDS: Heparin DRIP 25,000 UNITS BAG 25,000 UNITS/500 ML BAG IV SCH (11:50)
[2020-08-06 13:55] LABS: Troponin I 0.03 ng/mL (<0.03)
[2020-08-06] MEDS: Sodium Bicarb 650 mg (ANTACID) TAB PO SCH ×2 (15:27→20:28)
[2020-08-06 16:07] LABS: Troponin I 0.04 ng/mL (<0.03)
[2020-08-06] MEDS ORDERED: Dextrose 50% Syringe 50 ml 25 GM/50 ML SYRINGE IV PUSH PRN (16:23)
[2020-08-06] MEDS: Warfarin DAILY REMINDER **NOTE FOLLOW UP SCH (17:14)
[2020-08-06] MEDS: MYCOPHENOLATE 360 MG PO SCH (20:30)
[2020-08-06 20:32] LABS: Troponin I 0.04 ng/mL (<0.03)
[2020-08-07] MEDS: Heparin 5000 UNITS/ML 1 mL VIAL IV SCH (01:16)
[2020-08-07 08:19] LABS: Activated Partial Thrombo Time 70.8 seconds (26.0-38.0); INR 0.92 (0.82-1.09)
[2020-08-07 08:22] LABS: ABS Eosinophils 0.1 10^3/ul (0-0.6); ABS Lymphocytes 1.5 10^3/ul (1.0-4.8); ABS Monocytes 0.4 10^3/ul (0-0.8); ABS Neutrophils 2.7 10^3/ul (1.5-7.7); Eosinophil % 1.5 %; Hematocrit 30 % (35-47); Hemoglobin 10.3 g/dL (12.0-16.0); Lymphocyte % 32.6 %; Mean Corpuscular HGB Conc 34 g/dL (31-36); Mean Corpuscular Hemoglobin 30 pg (27-31); Mean Corpuscular Volume 88 fL (80-97); Mean Platelet Volume 8.3 fL (7.4-10.4); Nucleated Red Blood Cells % 0.1; Platelet Count 170 10^3/uL (150-450); Red Blood Count 3.45 10^6 /uL (3.70-4.87); Red Cell Distribution Width 15 % (10-15); White Blood Count 4.7 10^3/uL (3.5-10.8)
[2020-08-07] MEDS ORDERED: Influenza VAC *QUAD* 2020-21* 0.5 ML SYRINGE IM ONE (09:00)
[2020-08-07] MEDS: Sodium Bicarb 650 mg (ANTACID) TAB PO SCH ×3 (09:32→21:22)
[2020-08-07] MEDS: MYCOPHENOLATE 360 MG PO SCH ×2 (09:33→21:21)
[2020-08-07] MEDS: Heparin DRIP 25,000 UNITS BAG 25,000 UNITS/500 ML BAG IV SCH (11:55)
[2020-08-07] MEDS: Warfarin DAILY REMINDER **NOTE FOLLOW UP SCH (17:05)
[2020-08-08 06:07] LABS: ABS Eosinophils 0.1 10^3/ul (0-0.6); ABS Lymphocytes 1.4 10^3/ul (1.0-4.8); ABS Monocytes 0.4 10^3/ul (0-0.8); ABS Neutrophils 2.5 10^3/ul (1.5-7.7); Eosinophil % 1.4 %; Hematocrit 29 % (35-47); Hemoglobin 9.7 g/dL (12.0-16.0); Lymphocyte % 31.3 %; Mean Corpuscular HGB Conc 34 g/dL (31-36); Mean Corpuscular Hemoglobin 30 pg (27-31); Mean Corpuscular Volume 88 fL (80-97); Mean Platelet Volume 8.3 fL (7.4-10.4); Platelet Count 165 10^3/uL (150-450); Red Blood Count 3.27 10^6 /uL (3.70-4.87); Red Cell Distribution Width 15 % (10-15); White Blood Count 4.4 10^3/uL (3.5-10.8)
[2020-08-08 06:28] LABS: Calcium 9.3 mg/dL (8.6-10.3); EGFR African American 15.5 (>60); EGFR Non-African American 12.8 (>60); Magnesium 2.2 mg/dL (1.9-2.7); Potassium 4.2 mmol/L (3.5-5.0)
[2020-08-08 06:39] LABS: Activated Partial Thrombo Time 37.3 seconds (26.0-38.0); INR 0.95 (0.82-1.09)
[2020-08-08] MEDS: Heparin 5000 UNITS/ML 1 mL VIAL IV SCH (07:48)
[2020-08-08] MEDS: Sodium Bicarb 650 mg (ANTACID) TAB PO SCH ×3 (08:49→22:10)
[2020-08-08] MEDS: MYCOPHENOLATE 360 MG PO SCH ×2 (08:49→22:10)
[2020-08-08] MEDS: Heparin DRIP 25,000 UNITS BAG 25,000 UNITS/500 ML BAG IV SCH (11:37)
[2020-08-08] MEDS: Warfarin DAILY REMINDER **NOTE FOLLOW UP SCH (16:55)
[2020-08-09 05:19] LABS: ABS Eosinophils 0.1 10^3/ul (0-0.6); ABS Lymphocytes 1.6 10^3/ul (1.0-4.8); ABS Monocytes 0.4 10^3/ul (0-0.8); ABS Neutrophils 2.5 10^3/ul (1.5-7.7); Eosinophil % 1.2 %; Hematocrit 29 % (35-47); Hemoglobin 9.7 g/dL (12.0-16.0); Lymphocyte % 34.1 %; Mean Corpuscular HGB Conc 33 g/dL (31-36); Mean Corpuscular Hemoglobin 30 pg (27-31); Mean Corpuscular Volume 89 fL (80-97); Mean Platelet Volume 8.4 fL (7.4-10.4); Nucleated Red Blood Cells % 0.2; Platelet Count 157 10^3/uL (150-450); Red Blood Count 3.25 10^6 /uL (3.70-4.87); Red Cell Distribution Width 15 % (10-15); White Blood Count 4.6 10^3/uL (3.5-10.8)
[2020-08-09 05:43] LABS: Activated Partial Thrombo Time 78.2 seconds (26.0-38.0); INR 0.98 (0.82-1.09)
[2020-08-09] MEDS: Sodium Bicarb 650 mg (ANTACID) TAB PO SCH (08:46)
[2020-08-09] MEDS: MYCOPHENOLATE 360 MG PO SCH (08:47)
[2020-08-09 11:57] VITALS: BP 135/65
== END 2020-08-09 13:30 | disposition home or self-care (01) | DRG 201 ==
LOC: ED 06:07 → MEDTELE 09:43
PROVIDERS: ADMIT Internal Medicine; ATTEND Internal Medicine